=== PATIENT | male | born 1970 | race Hispanic/Latino ===

== ENCOUNTER 2022-04-10 21:43 | Emergency (ER) | payer SELFPAY ==
[~2022-04-10] VITALS: Ht 157.5 cm; Wt 87.1 kg
[2022-04-10 22:19] LABS: BASOPHILS % (AUTO) 0.8 % (0.0-5.0); EOSINOPHILS % (AUTO) 1.4 % (0.0-8.0); HEMATOCRIT 41.6 % (42-54); LYMPHOCYTES % (AUTO) 25.4 % (21.0-51.0); MEAN CORPUSCULAR HEMOGLOBIN 31.3 pg (27.0-33.0); MEAN CORPUSCULAR HGB CONC 33.2 g/dL (32.0-36.0); MEAN CORPUSCULAR VOLUME 94.3 fL (79-99); MONOCYTES % (AUTO) 12.2 % (3.0-13.0); NEUTROPHILS % (AUTO) 59.8 % (40.0-77.0); PLATELET COUNT (AUTO) 232 K/uL (130-400); RED BLOOD CELL COUNT(AUTO) 4.41 MIL/uL (4.50-6.20); RED CELL DISTRIBUTION WIDTH 12.2 % (11.0-15.5)
[2022-04-10 22:23] LABS: APPEARANCE,URINE CLEAR (CLEAR); BILIRUBIN,URINE NEGATIVE (NEGATIVE); COLOR,URINE COLORLESS (YELLOW); GLUCOSE, URINE (UA) NEGATIVE (NEGATIVE); KETONES,URINE NEGATIVE (NEGATIVE); LEUKOCYTE ESTERASE ,URINE NEGATIVE Leu/uL (NEGATIVE); NITRATE,URINE NEGATIVE (NEGATIVE); OCCULT BLOOD,URINE NEGATIVE (NEGATIVE); PROTEIN,URINE NEGATIVE (NEGATIVE); UROBILINOGEN,URINE 0.2 mg/dL (0.2-1.0)
[2022-04-10 22:28] LABS: CREATININE 1.5 mg/dL (0.5-1.5); POTASSIUM 3.8 mmol/L (3.5-5.1)
[2022-04-10] MEDS ORDERED: MORPHINE 4 MG SYG IVP ONE (22:30)
[2022-04-10] MEDS ORDERED: 0.9%NACL 1000ML 1,000 ML IV ONE (22:30)
[2022-04-10] MEDS ORDERED: KETOROLAC 15MG/ML VIAL (15MG/ML) IV ONE (22:30)
[2022-04-10] MEDS ORDERED: ONDANSETRON 4MG INJ IVP ONE (22:30)
[2022-04-10 22:32] LABS: ALBUMIN 3.6 g/dL (3.5-5.0); TOTAL PROTEIN, SERUM 8.2 g/dL (6.0-8.3)
[2022-04-11] MEDS ORDERED: TAMS-1 PO (01:19)
[2022-04-11] MEDS ORDERED: ONDA-104 PO (01:19)
[2022-04-11] MEDS ORDERED: IBUP-1493 PO (01:19)
[2022-04-11] MEDS ORDERED: LIDOCAINE 1% IV STA (01:53)
[2022-04-11] MEDS ORDERED: KETOROLAC 15MG/ML VIAL (15MG/ML) IV ONE (02:00)
[2022-04-11] MEDS ORDERED: LIDOCAINE HCL 1% 10 ML VIAL ONE (02:02)
[2022-04-11] MEDS ORDERED: LIDOCAINE HCL 1% 20 ML VIAL ONE (02:38)
[2022-04-11] MEDS ORDERED: LIDOCAINE HCL MPF 1% 5ML VIAL ONE (03:20)
[2022-04-11 04:05] VITALS: BP 145/62
== END 2022-04-11 04:24 | disposition home or self-care (01) ==
LOC: EDH 21:43
DX: N20.0 Calculus of kidney (principal); E11.9 Type 2 diabetes mellitus without complications; I10 Essential (primary) hypertension; Z79.1 Long term (current) use of non-steroidal anti-inflammatories (NSAID)
CPT/HCPCS: 99284; 74176; 96374; 96361; 96375; 80053; 83690; 85025; 81003; 36415; 96376; J7030; J2405; J2270; J1885 ×2; J3490 ×2